=== PATIENT | female | born 1980 | race African-American/Black ===

== ENCOUNTER 2025-03-31 23:26 | Emergency (ER) | payer MEDICAID ==
[~2025-03-31] VITALS: Ht 172.7 cm; Wt 79.0 kg
[2025-03-31 23:31] VITALS: O2SAT 99
[2025-04-01 00:05] VITALS: TEMP 36.6
[2025-04-01 00:54] VITALS: BP 102/60; PULSE 71; RESP 16; O2SAT 96
== END 2025-04-01 00:58 | disposition home or self-care (01) ==
LOC: ER 23:38
DX: S09.90XA Unspecified injury of head, initial encounter (principal); F41.9 Anxiety disorder, unspecified; F32.A Depression, unspecified; X58.XXXA Exposure to other specified factors, initial encounter; Y93.89 Activity, other specified; Y92.89 Other specified places as the place of occurrence of the external cause; Y99.8 Other external cause status
CPT/HCPCS: 99284